=== PATIENT | female | born 1975 | race Caucasian/White ===

== ENCOUNTER 2020-04-01 09:38 | Outpatient (CLI) | payer OTHER, SELFPAY ==
--- NOTE | 2020-04-01 09:46 | MM_ITS ---
WS: [id number] SCREENING DIGITAL MAMMOGRAM WITH CAD HISTORY: SCREENING COMPARISON: 03/18/2018 and 08/21/2011 Bilateral CC and MLO views submitted. Computer aided detection analyzed. Breast composition: The breasts are extremely dense, which lowers the sensitivity of mammography. Shahzad cifications upper outer quadrant of the RIGHT breast are new since the prior study. These calcificati ons are difficult to visualize and obscured by the dense fibroglandular tissue. Some of these calcifi cations appear to be in a ductal distribution. MM/[place] [id number] IMPRESSION: BI-RADS: 0-Incomplete: Need additional imaging evaluation FOLLOW UP: Need Additional Imaging RIGHT BREAST: Magnification views of suspicious calcification CC and MLO. True ML. View
== END 2020-04-01 09:39 | disposition home or self-care (01) ==
LOC: RADSHAW 09:44
PROVIDERS: Family Provider Family Medicine; Visit Provider Family Medicine
DX: Z12.31 Encounter for screening mammogram for malignant neoplasm of breast (principal); R92.1 Mammographic calcification found on diagnostic imaging of breast
CPT/HCPCS: 77067

== ENCOUNTER 2020-04-11 10:19 | Outpatient (CLI) | payer OTHER, SELFPAY ==
--- NOTE | 2020-04-11 10:22 | MM_ITS ---
WS: [id number] ADDITIONAL VIEWS RIGHT BREAST HISTORY: RIGHT BREAST CALCIFICATION COMPARISON: 04/01/2020 and 03/18/2018 Magnification views right CC and MLO projection. True ML also submitted. There are numerous segmental calcifications in the upper outer quadrant of the RIGHT breast. Calcific ations are not clustered. Some of these calcifications are lucent centered which are benign. No ducta [place] distribution. MM/[place] [id number] IMPRESSION: BI-RADS: 3-Probably Benign FOLLOW-UP: 6 Month Follow-up Recommendation magnification views RIGHT breast calcifications in 6 months. Due to the diffuse nature of these calcifications at this time stereotactic biopsy would not be helpful. Reevaluated in 6 months to evaluate for developing focal clustered calcification group.
== END 2020-04-11 10:20 | disposition home or self-care (01) ==
LOC: RADSHAW 10:21
PROVIDERS: Family Provider Family Medicine; Visit Provider Family Medicine
DX: R92.1 Mammographic calcification found on diagnostic imaging of breast (principal)
CPT/HCPCS: 77065

== ENCOUNTER 2020-10-03 09:17 | Outpatient (CLI) | payer OTHER, SELFPAY ==
--- NOTE | 2020-10-03 09:27 | MM_ITS ---
WS: [id number] Right breast diagnostic digital mammogram, 10/03/2020 Clinical Data: RIGHT BREAST CALCIFICATION Comparison: 04/11/2020, 04/01/2020, 03/18/2018, 08/21/2011. Findings: The right breast shows extreme density. The calcifications in the upper outer quadrant of the right b reast remain diffuse. No clustered calcifications or spiculated masses are seen. MM/[place] [id number] Impression: 1. Diffuse calcifications in upper-outer quadrant right breast which are unchan ged. 2. Recommend return to annual screening mammograms. BIRADS: 2-Benign FOLLOW UP: 1 Year Follow-up The CAD finished cloth checker was used.
== END 2020-10-03 09:18 | disposition home or self-care (01) ==
LOC: RADSHAW 09:23
PROVIDERS: Family Provider Family Medicine; PCP Family Medicine; Visit Provider Family Medicine
DX: R92.1 Mammographic calcification found on diagnostic imaging of breast (principal)
CPT/HCPCS: 77065

== ENCOUNTER → 2021-11-27 14:29 | Outpatient (BNVA) | payer OTHER, SELFPAY | PROVIDERS: Family Provider Family Medicine; PCP Family Medicine; Visit Provider Podiatrist Foot & Ankle Surgery | DX: L60.3 Nail dystrophy (principal) | CPT/HCPCS: 73630 ==

== ENCOUNTER 2022-11-18 14:47 | Emergency (ER) | payer OTHER, SELFPAY ==
--- NOTE | 2022-11-18 14:49 | XRR_ITS ---
PROCEDURE INFORMATION: Exam: XR Left Ankle Exam date and time: 11/18/2022 3:34 PM Age: 47 years old Clinical indication: Injury or trauma; Fall; Blunt trauma; Ankle; Left TECHNIQUE: Imaging protocol: Radiologic exam of the left ankle. Views: 3 or more views. COMPARISON: No relevant prior studies available. FINDINGS: Bones/joints: Medial aspect of the talus demonstrates cortical irregularity, potentially reflecting an acute fracture, CT could further evaluate this. Soft tissues: Normal. XR/XR ankle LT min 3V* [id number] IMPRESSION: Medial aspect of the talus demonstrates cortical irregularity, potentially reflecting an acute fracture, CT could further evaluate this.
[2022-11-18 15:14] VITALS: BP 107/65; PULSE 78; RESP 16; TEMP 36.7; O2SAT 100; BMI 25.8
--- NOTE | 2022-11-18 16:45 | CTR_ITS ---
PROCEDURE INFORMATION: Exam: CT Left Lower Extremity Without Contrast, Ankle Exam date and time: 11/18/2022 5:01 PM Age: 47 years old Clinical indication: Injury or trauma; Other: Fall from horse; Blunt trauma; Ankle; Left; Additional info: Pain TECHNIQUE: Imaging protocol: CT of the left lower extremity without contrast was performed. Exam focused on the ankle. Radiation optimization: All CT scans at this facility use at least one of these dose optimization techniques: automated exposure control; mA and/or kV adjustment per patient size (includes targeted exams where dose is matched to clinical indication); or iterative reconstruction. REPORTING DATA: Count of CT and Cardiac NM exams in prior 12 months: This patient has received 0 known CTs and 0 known cardiac nuclear medicine studies in the 12 months prior to the current study. COMPARISON: CR (LOW EXM, ) 11/18/2022 3:34 PM RADIATION DOSE METRICS: Total DLP (mGy-cm): 164.88 FINDINGS: Bones/joints: Comminuted displaced fracture to the talar body with extension to the subtalar articular surface and involvement of the medial malleolus as well as the lateral aspect of the talus. Punctate calcification along the anterior aspect of the distal tibia suggestive of a small avulsion fracture. Soft tissues: Subcutaneous edema about the ankle. CT/CT ankle LT wo con* [id number] IMPRESSION: 1. Comminuted displaced fracture to the talar body with extension to the subtalar articular surface and involvement of the medial malleolus as well as the lateral aspect of the talus. 2. Punctate calcification along the anterior aspect of the distal tibia suggestive of a small avulsion fracture. 3. Subcutaneous edema about the ankle.
[2022-11-18 17:30] VITALS: RESP 20; O2SAT 99
[2022-11-18] MEDS: morphine 4 mg/mL SDV 1 mL IM (17:30)
--- NOTE | 2022-11-18 18:20 | ED_ITS ---
HPI - Extremity Problem General: Chief complaint: Extremity Injury, Lower Stated complaint: LT ankle inj Time Seen by Provider: 11/18/22 14:58 History of Present Illness: 47-year-old female presented emergency room with left ankle pain. Patient further reveals that she sustained an injury while trying to get off her horse. Patient describes the pain as sharp sensation with severity of 9 out of 10 mostly along the left ankle. Patient denies any numbness, no other injury no knee pain or hip pain. Head injury or loss of consciousness. Patient reveals increased pain with weightbearing and range of motion. Review of Systems General: Reports: 10 or more systems reviewed and unremarkable except in HPI and below Musc: Reports: joint pain, joint swelling and limited range of motion; Denies: neck pain, back pain, extremity pain, extremity swelling, joint redness, joint warmth or joint stiffness PFSH ED PFSH: Social History Smoking and tobacco status: never smoked Physical Exam Const: COMMON NORMALS: no acute distress, average body habitus, patient oriented x3, no limitations, healthy appearing, alert and well nourished Neck/C-Spine: COMMON NORMALS: no JVD Resp: COMMON NORMALS: normal respiratory effort, No retractions, No use of accessory muscles, clear to auscultation bilaterally and percussion normal AUSCULTATION: clear to auscultation bilaterally PERCUSSION: percussion normal Cardio: COMMON NORMALS: no JVD, regular rate, regular rhythm, S1 normal heart sound present, S2 normal heart sound present, No gallops present (Cardio), No clicks present (Cardio), No murmurs present (Cardio), No rub (Cardio) and Peripheral pulses 2+ throughout RATE: regular rate RHYTHM: regular rhythm HEART SOUNDS: S1 normal heart sound present and S2 normal heart sound present PERIPHERAL PULSES: Peripheral pulses 2+ throughout Extremity: OTHER: Left ankle with severe swelling on the lateral aspect and and tenderness with range of motion. No open wound or laceration. Patient with strong palpable pulse. Patient with intact sensation of the toes. Neuro: COMMON NORMALS: patient oriented x3 SENSORIUM/ORIENTATION: Yes alert Skin: COMMON NORMALS: no rashes or lesions noted, no wounds, turgor normal, no jaundice, no petechiae and no mottling GENERAL SKIN EXAM: no rashes or lesions noted and turgor normal Procedures Orthopedic Splinting/Casting Injury #1: Side: left Lower Extremity Injury Location: ankle Lower Extremity Immobilizer: posterior splint and stirrup splint Other Orthopedic Equipment: crutches Course Reevaluation(s): Reevaluation #1: Upon assessment after splint patient reveals improvement with the pain. Consultations: Consultation #1: Discussed patient with the orthopedics on-call. Recommends splint and close follow-up in clinic. Vital Signs: Vital signs: Vital Signs Temperature 98.0 F 11/18/22 15:14 Pulse Rate 71 11/18/22 18:36 Respiratory Rate 16 11/18/22 18:36 Blood Pressure 107/65 11/18/22 15:14 Pulse Oximetry 98 11/18/22 18:36 Oxygen Delivery Me thod Room Air 11/18/22 15:14 MDM - Extremity (Nontraumatic) Medical Decision Making Patient was made comfortable emergency room. Patient extensive work-up including CT and x-ray. I discussed the x-ray and the CT finding with patient and . I spoke with about the CT findings and recommended splinting and close follow-up with clinic in the morning. The discharge plan was discussed with patient at length. Differential Diagnosis Likely lower extremity edema (Sprain, strain, fracture, dislocation) Lab Data Radiology Impressions Ankle X-Ray 11/18/22 14:49 IMPRESSION: Medial aspect of the talus demonstrates cortical irregularity, potentially reflecting an acute fracture, CT could further evaluate this. Ankle CT 11/18/22 16:45 IMPRESSION: 1. Comminuted displaced fracture to the talar body with extension to the subtalar articular surface and involvement of the medial malleolus as well as the lateral aspect of the talus. 2. Punctate calcification along the anterior aspect of the distal tibia suggestive of a small avulsion fracture. 3. Subcutaneous edema about the ankle. XR interpretation done by ED provider, pending radiology final review Discharge Plan Discharge Patient Disposition: Home Clinical Impression: Ankle sprain and strain, Fracture of toe, Ankle fracture, Talar fracture Condition: Stable Prescriptions: New tramadol 50 mg tablet 50 mg PO Q12H PRN (Reason: pain) Qty: 20 0RF Discharge Orders: Discharge ED (Routine); Ordered 11/18/22 Ordered By: Cheyanne Chamberlain Referrals: Nadia Oden MD [Primary Care Provider] - Mike Parr DO [Physician] - 1-3 days Discharge Diet: Advance as tolerated Discharge Activity: Resume usual activity Patient Instructions: Opioid Safety, Pain Management Coding Level of Care Code ED Shirring Machine Operator for Joseph Bella
[2022-11-18] MEDS: TRAMadol 50 mg Tablet PO (18:35)
[2022-11-18 18:36] VITALS: PULSE 71; RESP 16; O2SAT 98
== END 2022-11-18 18:38 | disposition home or self-care (01) ==
PROVIDERS: Emergency Provider Family Medicine; PCP Family Medicine
DX: S93.402A Sprain of unspecified ligament of left ankle, initial encounter (principal); S96.912A Strain of unspecified muscle and tendon at ankle and foot level, left foot, initial encounter; S82.52XA Displaced fracture of medial malleolus of left tibia, initial encounter for closed fracture; S92.122A Displaced fracture of body of left talus, initial encounter for closed fracture; V80.010A Animal-rider injured by fall from or being thrown from horse in noncollision accident, initial encounter
CPT/HCPCS: 29515; 73610; 73700; 96372; 99284; J2270

== ENCOUNTER 2023-02-21 14:29 | Outpatient (RCR) | payer OTHER, SELFPAY | END 2023-03-03 23:59 | disposition home or self-care (01) | LOC: SPT 14:29 | PROVIDERS: PCP Physician Assistant; Visit Provider Physician Assistant | DX: Z98.890 Other specified postprocedural states (principal) | CPT/HCPCS: 97110; 97140; 97161 ==

== ENCOUNTER 2023-03-13 08:07 | Outpatient (RCR) | payer OTHER, SELFPAY | END 2023-04-03 23:59 | disposition home or self-care (01) | LOC: SPT 08:07 | PROVIDERS: PCP Physician Assistant; Visit Provider Physician Assistant | DX: Z98.890 Other specified postprocedural states (principal) | CPT/HCPCS: 97110; L1902 ==

== ENCOUNTER → 2023-04-01 15:12 | Outpatient (BNVA) | payer OTHER, SELFPAY | PROVIDERS: PCP Physician Assistant; Visit Provider Nurse Practitioner Women's Health | DX: Z01.419 Encounter for gynecological examination (general) (routine) without abnormal findings (principal); N76.0 Acute vaginitis; B96.89 Other specified bacterial agents as the cause of diseases classified elsewhere; Z12.39 Encounter for other screening for malignant neoplasm of breast | CPT/HCPCS: 87624 ==

== ENCOUNTER 2023-04-04 06:00 | Outpatient (RCR) | payer OTHER, SELFPAY | END 2023-05-02 23:59 | disposition home or self-care (01) | LOC: SPT 06:00 | PROVIDERS: PCP Physician Assistant; Visit Provider Physician Assistant | DX: Z98.890 Other specified postprocedural states (principal) | CPT/HCPCS: 97110 ==

== ENCOUNTER 2023-04-09 08:14 | Outpatient (CLI) | payer OTHER, SELFPAY ==
--- NOTE | 2023-04-09 08:19 | MM_ITS ---
WS: [id number] BILATERAL SCREENING DIGITAL TOMOSYNTHESIS MAMMOGRAM WITH CAD HISTORY: Z12.39 - Encounter for other screening for malignant neop... COMPARISON: 10/03/2020, 04/01/2020, 03/18/2018 Bilateral CC and MLO views with tomosynthesis and synthetic mammography submitted. Computer aided det ection analyzed. Breast composition: The breasts are extremely dense, which lowers the sensitivity of mammography. No suspicious masses, microcalcifications or architectural distortion. Very dense asymmetric fibroglandu lar breast tissue. There are numerous bilateral scattered calcifications. There is no cluster or grou ping of calcifications. IMPRESSION: MM/[place] [id number] BI-RADS: 2-Benign FOLLOW UP: 1 Year Follow-up
== END 2023-04-09 08:15 | disposition home or self-care (01) ==
LOC: RAD 08:14
PROVIDERS: PCP Physician Assistant; Visit Provider Nurse Practitioner Women's Health
DX: Z12.31 Encounter for screening mammogram for malignant neoplasm of breast (principal); R92.323 Mammographic fibroglandular density, bilateral breasts; R92.1 Mammographic calcification found on diagnostic imaging of breast
CPT/HCPCS: 77063; 77067

== ENCOUNTER 2024-06-12 13:16 | Outpatient (CLI) | payer OTHER, SELFPAY ==
--- NOTE | 2024-06-12 08:20 | MM_ITS ---
WS: [id number] BILATERAL 3D TOMOSYNTHESIS DIGITAL SCREENING MAMMOGRAM WITH CAD CLINICAL INFORMATION: Z12.39 - Encounter for other screening for malignant neop... HISTORY: Screening mammogram. No current complaints. COMPARISON: 2023 TECHNIQUE: Bilateral CC and MLO. FINDINGS: The breast are composed of extremely dense nodular tissue, which can limit the detection of small underlying mass lesions. No suspicious focal mass, asymmetry, calcifications, or architectural distortion. No evidence of malignancy. A few tiny incidental punctate calcifications. Skin calcifications. MM/MM [facility] tomosynthesis [id number] IMPRESSION: DENSITY: The breasts are extremely dense, which lowers the sensitivity of mammo graphy. BI-RADS: 2 - Benign FOLLOW UP: 1 Year Follow-up Recommend return to annual screening mammography.
== END 2024-06-12 13:17 | disposition home or self-care (01) ==
PROVIDERS: PCP Electrodiagnostic Medicine; Visit Provider Nurse Practitioner Women's Health
DX: Z12.31 Encounter for screening mammogram for malignant neoplasm of breast (principal); R92.343 Mammographic extreme density, bilateral breasts; R92.1 Mammographic calcification found on diagnostic imaging of breast
CPT/HCPCS: 77063; 77067

== ENCOUNTER 2024-09-29 09:11 | Emergency (ER) | payer OTHER, SELFPAY ==
--- OUTSIDE RECORDS SUMMARY | 2024-09-29 09:19 | XMS_ITS | Continuity of Care Document ---
Author Organization [facility] Beni Michel, [facility] ([facility]) Address [address] [place] [address] Care Team Providers Care Agronomy Manager Name Role Phone VANITA TOSCANO Primary Care Provider Unavailabl e Assessment No assessment recorded. Plan of Treatment Reminders Order Date Submit Date Provider Last Modified By Organization Details Last Modified Time Details Appointments None recorded. Lab None recorded. Referral None recorded. Procedures None recorded. Surgeries None recorded. Imaging None recorded. Medication Orders prednisone 20 mg tablet 2024 025 [facility]/Pharmacy #[id number], [address], [address], 5 09:20:57 Patient TargetsNo targets recorded. Patient InstructionsNo instructions recorded. Reason for Referral None Reported. 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 Procedures Surgical History Date Name Laterality Status Provider Name and Address Organization Details Recorded Time 11/28/19 procedure on ankle completed [facility], Beni 12/11/2023 16:42:38 [facility] 16:43:[facility] 16:43:53 Imaging Results None recorded. Procedure Notes None recorded. Medical Equipment None Reported. Allergies Allergen ID Allergen Name Allergen Category Reaction Reaction Severity Criticality Documentation Date Start Date Code Code System Note Provider Name and Address Organization Details Recorded Time 12683 codeine sulfate medicatio n vomiting Not available Not available 09/29/2022 95821 RxNorm React ion: Vomit ing; Comme nt: Recor ded 06/14 11:18 AM by Leia Garcia r, Offic e Visit ; Promo karine; Signi fican ce: *; ; Not Available [facility] 3 02:28:38 84265 penicilli n V potassium medicatio n hives Not available Not available 09/29/2022 [id number] 5 RxNorm React ion: Hives ;all cilli n's; Comme nt: Recor ded 06/14 11:18 AM by Leia Garcia r, Offic e Visit ; Promo karine; Signi fican ce: *; ; Not Available [facility] 3 02:28:38 78748 codeine medicatio n hives Not available Not available 09/29/2022 2670 RxNorm React ion: Hives ; Comme nt: Recor ded 06/14 11:18 AM by Leia Garcia r, Offic e Visit ; Promo karine; Signi fican ce: *; ; Not Available [facility] 3 02:28:39 Medications Name Sig Start Date Stop Date Status Note LastModified by Organization Details LastModified Time cetirizin e 10 mg tablet 10 mg every day by oral route. 2015 active Not Available Not Available Not Avai lable azithromy ciarra 250 mg tablet TAKE 2 TABLETS BY MOUTH TODAY, THEN TAKE 1 TABLET DAILY FOR 4 DAYS DIRECTED 09/19 completed Not Available Not Available Not Available prednison e 20 mg tablet 2 po every AM for 4 days, then 1 po every AM for 4 more days. 2024 active Not Available Not Available Not Avai lable metronida zole 500 mg tablet TAKE 1 TABLET BY MOUTH TWICE A DAY FOR 7 DAYS 12/10 completed Not Available Not Available Not Available aspirin 81 mg chewable tablet TAKE 1 TABLET BY MOUTH 2 TIMES DAILY. 12/10 completed Not Available Not Available Not Available cephalexi n 500 mg tablet Take 1 tablet 3 times a day by oral route for 10 days. 2024 active Not Available Not Available Not Avai lable estradiol 0.01% (0.1 mg/gram) vaginal cream 1 APPLICAT ION VAGINALL Y TWICE DAILY FOR TWO WEEKS, AND THEN TWICE WEEKLY. 12/10 completed Not Available Not Available Not Available Daily Multi-Vit styles tablet 1 tablet every day by oral route. 2022 active Not Available Not Available Not Avai lable vitamin A daily 12/08 completed 0; Recorded 06/15/19 11:19AM by Elma Mayorga, Office Visit; Not Available Not Available Not Available Vitamin D3 daily active 0; Recorded 06/15/19 11:19AM by Elma Mayorga, Office Visit; Not Available Not Available Not Available Vitamin B12 daily active 0; Recorded 06/15/19 11:19AM by Elma Mayorga, Office Visit; Not Available Not Available Not Available Probiotic Acidophil us daily active 0; Recorded 06/15/19 11:19AM by Elma Mayorga, Office Visit; Not Available Not Available Not Available diindolyl methane 75 mg-turmer ic 125 mg-black pepper 1.25 mg capsule 1 capsule every day by oral route. 2018 active Not Available Not Available Not Avai lable Vitals Date Recorded Body height Body mass index (BMI) Body weight Oxygen saturation Oxygen saturation in Arterial blood by Pulse oximetry Heart rate Respiratory rate Body temperature Systolic And Diastolic Provider Name and Address Organization Details Last Updated DateTime 5 167.64 cm 27.2 kg/m2 38117.9 2 g 97 % 97 % 96 /min 18 /min 97.4 [degF] 110/70 mm[Hg] Vianey dEmondson [facility] 08:57:07 Social History Question Answer Notes LastModified by Organizat ion Details LastModified Time Tobacco Smoking Status Never Smoker Katelynn Urisa kiara [facility] 09/19/2024 11:36:01 What Was The Date Of Your Most Recent Tobacco Screening? 09/19/2024 [id number] Information not available 09/19/2024 Sex: Unknown Functional Status None recorded. Mental Status None recorded. Family History Relationship Description Onset Age of this Age Resolved Age Notes LastModified by Organization Details LastModified Time Father Essential hypertension [email or web address] Not available 11/2023 16:50:40 Paternal Grandfather Heart disease Not available 2023 16:51:02 Paternal Grandmother Heart disease [id number] Not available 2023 16:51:02 Mother Disorder of thyroid gland Not available 2023 09:33:09 Maternal Grandmother Goiter Not available 12/02 09:33:21 Medical History No medical history recorded. Gynecological HistoryNo gynecological history recorded. Obstetrics History GPAL:G 0 P 0 0 0 0 Immunizations Vaccine Type Date Status Note Provider Nam e and Address Organization Details Recorded Time Influenza, split virus, trivalent, preservative 0 completed Not Available [facility] 09/29/2022 02:50:16 Influenza, split virus, trivalent, preservative 1 completed Not Available [facility] 09/29/2022 02:50:16 Past Encounters Encounter ID Performer Location Encounter Start Date Encounter Closed Date Diagnosis/Indication Diagnosis SNOMED-CT Code Diagnosis ICD10 Code Diagnosis Note [id number] GER WHYTE [facility] ([facility]) [address] [place] [phone] 09/19/2024 11:30:16 09/19/2024 18:38:21 Eruption 432168694 R21 May use otc meds like zyrtec daily for symptoms. Return to clinic with any new or worsening symptoms. [id number] Vanita Toscano DO [facility] ([facility]) [address] [place] [address] 09/22/2024 08:46:40 09/23/2024 13:33:46 Muscle pain 95854716 M79.18 Eruption 660528019 R21 with myalgias and arthralgia s. not resolving with conservati ve treatment. will start prednisone . continue zyrtec.Ret urn to office with no improvemen t or any problems. Go to ER with severe worsening or severe problems. Health Concerns Section Related Observation LastModified by Organization Detai ls LastModified Time None Recorded Concern Status LastModified by Organization Details LastModified Time None Recorded Payers Encounter Date Sequence Insurance Name Policy Number Policy Kerns Covered Member ID Kerns Member ID Guarantor Name 09/22/2024 1 [employer] - [employer] ([employer]) [id number] Richardson Scott [id number] Richardson Scott OBGyn Episode No OBEpisode recorded.
--- OUTSIDE RECORDS SUMMARY | 2024-09-29 09:20 | XMS_ITS | Clinical Summary ---
Author Organization [facility] Address [address] [place] [address] Phone Care Team Providers Care Secretary Name Role Phone Karan Mckinney MD Primary Care Provider [phone] Allergies Active Allergy Reactions Criticality Noted Date Comments Alpha-Gal (Yfwsosckc-Usjbq-3,3-Galacto se) Shortness of Breath/Wheezing,Rash,Naus ea and Vomiting High 11/22/2022 Codeine Nausea and Vomiting Low 11/21/2022 Hydrocodone Hives High 11/21/2022 Oxycodone Hives High 11/21/2022 Penicillins Hives High 11/18/2022 Medications cyclobenzaprine (FLEXERIL) 10 mg tablet 11/19/2022 Active traMADoL (ULTRAM) 50 mg tablet 11/19/2022 Active ibuprofen (MOTRIN) 200 mg tablet Take 200 mg by mouth every 6 hours as needed for Pain, Mild. Active acetaminophen (TYLENOL) 500 mg tablet Take 500 mg by mouth every 6 hours as needed. Active CHOLECALCIFEROL , VITAMIN D3, ORAL Take by mouth. Active cetirizine (ZyrTEC) 10 mg tablet Take 10 mg by mouth daily. Active ondansetron (ZOFRAN ODT) 4 mg Tablet, Rapid Dissolve Take 1 Tablet (4 mg) by mouth every 4 hours as needed for Nausea/Emesis . Dissolve tablet on top of tongue, then swallow with saliva. 30 Tablet 1 11/27/2022 1:35 PM CDT 11/27/2022 Active HYDROmorphone (DILAUDID) 2 mg tabletIndicatio ns:Closed displaced fracture of body of left talus with routine healing, subsequent encounter Take 1 Tablet (2 mg) by mouth every 3 hours as needed for Pain. Max Daily Amount: 16 mg 20 Tablet 11/29/2022 Active aspirin (JACKSON CHEWABLE) 81 mg Tablet, Chewable Take 1 Tablet (81 mg) by mouth 2 times daily. 60 Tablet 1 12/26/2022 Active Miscellaneous Medical SupplyIndicatio ns:Status post open reduction and internal fixation (ORIF) of fracture L ASO Brace 1 Each 03/13/2023 Active Active Problems Problem Noted Date Diagnosed Date Closed displaced fracture of left talus 11/27/19 23 Social History Tobacco Use Types Packs/Day Years Used Date Smoking Tobacco: Former Cigarettes 0.1 10 1 997 - 2006 Smokeless Tobacco: Never Tobacco Cessation:Counseling Given: Not Answered Alcohol Use Standard Drinks/Week Comments Not Currently 0 (1 standard drink = 0.6 oz pur e alcohol) rarely Comments No Sex and Gender Information Value Date Recorded Sex Assigned at Not on file Legal Sex Female 3:47 PM CDT Gender Identity Not on file Sexual Orientation Not on file Last Filed Vital Signs Vital Sign Reading Time Taken Comments Blood Pressure 112/68 03/27/2023 10:25 AM SPECIMEN PREPARATION ASSISTANT Pulse 78 01/09/2023 10:21 AM SPECIMEN PREPARATION ASSISTANT Temperature 36.7 C (98.1 F) 11/27/2022 4:15 PM CDT Respiratory Rate 17 11/27/2022 3:03 PM CDT Oxygen Saturation 94% 11/27/2022 4:30 PM CDT Inhaled Oxygen Concentration - - Weight 70.3 kg (155 lb) 03/27/2023 10:25 AM SPECIMEN PREPARATION ASSISTANT Height 167.6 cm (5' 6 ) 03/27/2023 10:25 AM SPECIMEN PREPARATION ASSISTANT Body Mass Index 25.02 03/27/2023 10:25 AM SPECIMEN PREPARATION ASSISTANT Plan of Treatment Health Maintenance Due Date Last Done Comments DTAP/TDAP/TD VACCINES (1 - Tdap) 1996 HEPATITIS B VACCINES (1 of 3 - 19+ 3-dose series) 1996 HPV/Cotest (21-29) 1998 CERVICAL CANCER SCREENING 09/27/2007 HPV/Cotest (30-65) 09/27/2007 PAP SMEAR 09/27/2007 BREAST CANCER SCREENING 2017 COLORECTAL SCREENING 2022 Colorectal Cancer Screening 2022 FIT-DNA Q 3 years 2022 FIT/FOBT Q 1 year 2022 Flex Sig/CT Colonography Q 5 years 2022 INFLUENZA VACCINE (#1) 2024 HPV VACCINES Aged Out No longer eligi ble based on patient's age to complete this topic Medical Devices Implanted Type Area Watchguard Device Identifier Shelf Expiration Date Model / Serial / Lot Screw Cmprsn Ft Ti 4.0x44mm [id number]-[id number] - [id number] Implanted:Qty: 1 on 11/27/2022 by Vitaliy Blanchard MD at [facility] Screw N/A: Foot [employer] 01/01/2023 AR-[id number] / / LOAD #[id number] Screw Quickfix Pt 4.0x34mm [id number] - [id number] Implanted:Qty: 1 on 11/27/2022 by Vitaliy Blanchard MD at [facility] Screw N/A: Foot [employer] 01/01/2023 AR-8740-34P TS / / LOAD #[id number] Screw Quickfix Pt 4.0x30mm [id number] - [id number] Implanted:Qty: 1 on 11/27/2022 by Vitaliy Blanchard MD at [facility] Screw N/A: Foot [employer] 01/01/2023 AR-8740-30P TS / / LOAD #[id number] Explanted Type Area Watchguard Device Identifier Shelf Expiration Date Model / Serial / Lot Wire K Trocar Dbl .[id number] - [id number] Explanted:Qty: 1 on 11/27/2022 by Vitaliy Blanchard MD at [facility] Wire N/A: Foot [facility] [facility] 01/01/2023 [id number] / / LOAD #[id number] Insurance [employer] BALANCE [employer] EXCH[employer] [id number] [id number] RX EXPRESS SCRIPTS Express RX [employer] PLANS (INTERNAL) [facility] Internal Plans Advance Directives For more information, please contact: [phone] * Full Code (Latest Code Status on File) Date Activated Date Inactivated Comments 11/27/2022 9:31 AM 11/27/2022 7:11 PM * Full Code Date Activated Date Inactivated Comments 11/27/2022 9:12 AM 11/27/2022 9:30 AM Care Teams Secretary Relationship Specialty Start Date End Date Karan Mckinney MD [address] [facility] [address] [place] [id number] PCP - General Family Practice 11/27/22
--- OUTSIDE RECORDS SUMMARY | 2024-09-29 09:20 | XMS_ITS | Data Portability ---
Author Organization [facility] Octaviano [facility], [facility] Address [address] [address] [place] [address] Care Team Providers Care Business Analyst Consultant Name Role Phone VANITA TOSCANO Primary Care Provider Unavailabl e Assessment Encounter Date Assessment Date Assessment LastModified by Organization Details LastModified Time 12/11/2023 12/11/2023 jaw pain is resolved. likely a resolved TMJ. counseled. Return to office with no improvement or any problems. Go to ER with severe worsening or severe problems. [email or web address] Not available 12/11/2023 17:30:24 Plan of Treatment Reminders Order Date Submit Date Provider Last Modified By Organization Details Last Modified Time Details Appointments None recorded. Lab rapid flu (A+B), PCR [email or web address] [facility] ([facility]), [address] [place], [address], 5 09:37:12 TSH, serum or plasma 2023 [facility] ([facility]), [address] [place], [address], 18:03:41 T4, free, serum [facility], [address] [place] [address], [address] [place], [address], 4 19:16:58 alpha-gal ige, serum - whole panel with individual beef, pork, sterling 2023 024 [place] [facility], [address], [address] [place], [address], 19:16:56 Referral None recorded. Procedures None recorded. Surgeries None recorded. Imaging None recorded. Medication Orders prednisone 20 mg tablet 2024 025 [facility]acy #[id number], [address], [address], 09:20:57 azithromyci n 250 mg tablet 2024 025 [facility]acy #[id number], [address] [facility], [facility], [place], [address], 11:35:41 Patient TargetsNo targets recorded. Patient InstructionsNo instructions recorded. Reason for Referral None Reported. Results Created Date Observation Date Name Description Value Unit Range Abnormal Flag Note LastModifiedBy Organization Detail LastModifiedTime 12/11/1912/15/2023 ALPHA GAL PANEL beef (F27) IgE 4.85 kU/L high Not Available [facility] [place] [address] [place], [address], 12/15/2023 19:16:56 12/11/1912/15/2023 ALPHA GAL PANEL class 3 Not Available [facility] [place] [address] [place], [address], 12/15/2023 19:16:56 12/11/1912/15/2023 ALPHA GAL PANEL sterling (F88) IgE 1.21 kU/L high Not Available [facility] [place] [address] [place], [address], 12/15/2023 19:16:56 12/11/1912/15/2023 ALPHA GAL PANEL class 2 Not Available [facility] [address] [place], [address], 12/15/2023 19:16:56 12/11/1912/15/2023 ALPHA GAL PANEL pork (F26) IgE 1.96 kU/L high Not Available [facility] [address] [place], [address], 12/15/2023 19:16:56 12/11/1912/15/2023 ALPHA GAL PANEL class 2 Not Available [facility] [address] [place], [address], 12/15/2023 19:16:56 12/11/1912/15/2023 ALPHA GAL PANEL galactose alpha 1,3 galactose IgE 5.77 kU/L <0.10 high Resul ts above 0.1 kU/L indic ate an aller gen-s pecif ic IgE sensi tizat ion to galac tose- a-1,3 -gala ctose , and such patie nts are at risk for delay ed aller gic react ions follo wing beef, pork, or sterling consu mptio n. Circu latin g IgE antib odies may remai n undet ectab le despi te a convi ncing clini poonam histo ry becau se these antib odies may be direc karine towar ds aller gens revea led or alter ed durin g indus trial proce ssing , cooki ng, or diges tion and there fore do not exist in the origi nal food for which the patie nt is teste d. Somet imes indiv idual s diagn osed with chron ic urtic aria may devel op IgE antib odies direc karine again st human thyro globu cameron. Such antib odies may cross -reac t with the bovin e thyro globu cameron used in Immun oCAP( R) Aller gen o215, alpha -Gal, leadi ng to a false -posi tive test resul t. A defin itive diagn osis shoul d be based on the evalu ation of both clini poonam and labor atory findi ngs and not on any singl e diagn ostic metho d. Addit ional infor matio n can be found at http: //www .phad ia.co m Not Available [facility] [address] [place], [address], 12/15/2023 19:16:56 12/11/1912/15/2023 INTER PRETA TION interpretati on Speci fic Level of Aller gen IGE Class kU/L Speci fic IGE Antib lisa ----- ----- ---- ----- ----- ----- ---- 0 <0.10 Absen t/Und etect able 0/1 0.10- 0.34 Very Low Level 1 0.35- 0.69 Low Level 2 0.70- 3.49 Moder ate Level 3 3.50- 17.4 High Level 4 17.5- 49.9 Very High Level 5 50-10 0 Very High Level 6 >100 Very High Level The clini poonam relev ance of aller gen resul ts of 0.10- 0.34 kU/L are undet ermin ed and inten ded for speci alist use. Aller gens denot ed with a inclu de resul ts using one or more medhat te speci fic reage nts. In those cases , the test was devel oped and its medhat tical perfo rmanc e dao cteri stics have been deter mined by [facility]. It has not been clear ed or appro bridger by the U.S. Food and Drug Admin istra tion. This assay has been valid ated pursu ant to the CLIA regul ation s and is used for clini poonam purpo ses. Not Available [facility] [address] [place], [address], 12/15/2023 19:16:58 12/11/1912/15/2023 T4, FREE T4, free 1.2 NG/dL 0.8-1. 8 normal Not Available [facility] [address] [place], [address], 12/15/2023 19:16:58 12/11/1912/11/2023 TSH, serum or plasm a TSH 0.79 uIU/m L 0.49-[address] [facility] ([facility]) [address] [place] [address], [address], 12/11/2023 17:24:28 03/26/19 25 03/26/2024 rapid flu (A+B) , PCR Influenza A negati ve Not Available [facility] ([facility]) [address] [place] [address], [address], 03/26/2024 09:08:53 03/26/1903/26/2024 rapid flu (A+B) , PCR Influenza B negati ve Not Available [facility] ([facility]) [address] [place] [address], [address], 03/26/2024 09:08:53 Result Notes None recorded. 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, [facility]lga[facility] 5 08:55:07 Eruption 407033004 Active 2024 Vanita Toscano DO [address] [place] [address], [address] , [facility], L.[facility] 5 09:16:53 Problem Notes None recorded. Procedures Surgical History Date Name Laterality Status Provider Name and Address Organization Details Recorded Time 11/28/19 procedure on ankle [facility] 12/11/2023 16:42:38 excision of ganglion cyst [facility]/11/2023 16:43:36 tonsillectomy completed Vianey Edmondson [facility], [place] 12/11/2023 16:43:53 Imaging Results None recorded. Procedure Notes None recorded. Medical Equipment None Reported. Allergies Allergen ID Allergen Name Allergen Category Reaction Reaction Severity Criticality Documentation Date Start Date Code Code System Note Provider Name and Address Organization Details Recorded Time 38588 codeine sulfate medicatio n vomiting Not available Not available 09/29/2022 68424 RxNorm React ion: Vomit ing; Comme nt: Recor ded 06/14 11:18 AM by Leia Garcia r, Offic e Visit ; Promo karine; Signi fican ce: *; ; Not Available [facility] 3 02:28:38 21891 penicilli n V potassium medicatio n hives Not available Not available 09/29/2022 64287 5 RxNorm React ion: Hives ;all cilli n's; Comme nt: Recor ded 06/14 11:18 AM by Kelse martínez Yeage r, Offic e Visit ; Promo karine; Signi fican ce: *; ; Not Available [facility] 3 02:28:38 49143 codeine medicatio n hives Not available Not available 09/29/2022 2670 RxNorm React ion: Hives ; Comme nt: Recor ded 06/14 11:18 AM by Kelse tanya Hilarioage r, Offic e Visit ; Promo karine; Signi fican ce: *; ; Not Available [facility] 3 02:28:39 Medications Name Sig Start Date [...] completed 0; Recorded 06/15/19 11:19AM by Elma Mares, Office Visit; Not Available Not Available Not Available Vitamin D3 daily active 0; Recorded 06/15/19 11:19AM by Elma Mares, Office Visit; Not Available Not Available Not Available Vitamin B12 daily active 0; Recorded 06/15/19 11:19AM by Elma Mares, Office Visit; Not Available Not Available Not Available Probiotic Acidophil us daily active 0; Recorded 06/15/19 11:19AM by Elma Mares, Office Visit; Not Available Not Available Not Available diindolyl methane 75 mg-turmer ic 125 mg-black pepper 1.25 mg capsule 1 capsule every day by oral route. 2018 active Not Available Not Available Not Avai lable Vitals Date Recorded Body height Body mass index (BMI) Body weight Oxygen saturation Oxygen saturation in Arterial blood by Pulse oximetry Heart rate Respiratory rate Systolic And Diastolic Provider Name and Address Organization Details Last Updated DateTime 5 167.64 cm 27.8 kg/m2 96438.8 9 g 99 % 99 % 86 /min 18 /min 128/76 mm[Hg] ELMA MARES [facility] 5 09:06:59 Date Recorded Body height Body mass index (BMI) Body weight Body temperature Heart rate Oxygen saturation Oxygen saturation in Arterial blood by Pulse oximetry Systolic And Diastolic Provider Name and Address Organization Details Last Updated DateTime 5 167.64 cm 27.2 kg/m2 92320.3 2 g 98.5 [degF] 92 /min 99 % 99 % 122/68 mm[Hg] Katelynn Adonay [facility], L.L.COlga 5 11:39:58 Date Recorded Body height Body mass index (BMI) Body weight Oxygen saturation Oxygen saturation in Arterial blood by Pulse oximetry Heart rate Respiratory rate Body temperature Systolic And Diastolic Provider Name and Address Organization Details Last Updated DateTime 5 167.64 cm 27.2 kg/m2 76599.9 2 g 97 % 97 % 96 /min 18 /min 97.4 [degF] 110/70 mm[Hg] Vianey Edmondson [facility], L.L[facility]CO[facility] 5 08:57:07 Date Recorded Body height Body mass index (BMI) Body weight Oxygen saturation Oxygen saturation in Arterial blood by Pulse oximetry Heart rate Body temperature Respiratory rate Systolic And Diastolic Provider Name and Address Organization Details Last Updated DateTime 5 167.64 cm 27 kg/m2 60487.9 3 g 97 % 97 % 67 /min 98.5 [degF] 17 /min 110/70 mm[Hg] NAEL WHATLEY [facility], L.L.CO[facility]ga 5 13:17:05 Date Recorded Body weight Body mass index (BMI) Body height Oxygen saturation Oxygen saturation in Arterial blood by Pulse oximetry Heart rate Respiratory rate Systolic And Diastolic Provider Name and Address Organization Details Last Updated DateTime 4 29766.8 5 g 26.5 kg/m2 167.64 cm 99 % 99 % 81 /min 18 /min 120/68 mm[Hg] Vianey Edmondson [facility], L.L.CO[facility]ga 4 16:40:00 Social History Question Answer Notes LastModified by Organizat ion Details LastModified Time Tobacco Smoking Status Never Smoker Katelynn Adonay [facility], L.L.CO[facility] 09/19/2024 11:36:01 What Was The Date Of Your Most Recent Tobacco Screening? 09/19/2024 [email or web address] Information not available 09/19/2024 Sex: Unknown Functional Status None recorded. Mental Status None recorded. Family History Relationship Description Onset Age of this Age Resolved Age Notes LastModified by Organization Details LastModified Time Father Essential hypertension [email or web address] Not available 11/2023 16:50:40 Paternal Grandfather Heart disease Not available 2023 16:51:02 Paternal Grandmother Heart disease [email or web address] Not available 2023 16:51:02 Mother Disorder of thyroid gland [email or web address] Not available 2023 09:33:09 Maternal Grandmother Goiter Not available 12/02 09:33:21 Medical History No medical history recorded. Gynecological HistoryNo gynecological history recorded. Obstetrics History GPAL:G 0 P 0 0 0 0 Immunizations Vaccine Type Date Status Note Provider Nam e and Address Organization Details Recorded Time Influenza, split virus, trivalent, preservative 0 completed Not Available [facility] 09/29/2022 02:50:16 Influenza, split virus, trivalent, preservative 1 completed Not Available [facility] 09/29/2022 02:50:16 Past Encounters Encounter ID Performer Location Encounter Start Date Encounter Closed Date Diagnosis/Indication Diagnosis SNOMED-CT Code Diagnosis ICD10 Code Diagnosis Note [id number] Vanita Toscano DO [facility] ([facility]) [address] [place] [phone] 12/11/2023 16:22:04 12/12/2023 08:59:32 Exophthalmos 49029889 H05.20 concern for by optomatris t. I do not see this today on exam. no s/s of hyperthryo id, but we will get labs to r/o. Allergy to leszoguok-hophv-8,3 galactose 893614504 Z88.8 story: DX 2018. NO fu labs since. eating dairy, not beef or pork. will get labs. counseled [id number] Vanita Toscano DO [facility] ([facility]) [address] [place] [phone] 03/26/2024 08:45:12 03/27/2024 10:05:37 Sore throat 184560450 J02.9 Acute maxi llary sinusitis 61417382 J01.00 rapid flu negative. c/w bacterial infection, will start abx. rest, fluids. Return to office with no improvemen t or any problems. Go to ER with severe worsening or severe problems. [id number] GER WHYTE [facility] ([facility]) [address] [place], [place] [phone] 5 09/19/2024 11:30:16 09/19/2024 18:38:21 Eruption 482768098 R21 May use otc meds like zyrtec daily for symptoms. Return to clinic with any new or worsening symptoms. [id number] Vanita Toscano DO [facility] ([facility]) [address] [place] [address] 5 09/22/2024 08:46:40 09/23/2024 13:33:46 Muscle pain 33146819 M79.18 Eruption [id number] R21 with myalgias and arthralgia s. not resolving with conservati ve treatment. will start prednisone . continue zyrtec.Ret urn to office with no improvemen t or any problems. Go to ER with severe worsening or severe problems. [id number] Vanita Toscano DO [facility] ([facility]) [address] [place], [place] [phone] 09/28/2024 13:00:09 09/28/2024 14:48:26 Acute cellulitis 5247925338 L03.90 Right index finger, s/p cat bite, counseled will tx with abx. Confirmed allergies, PCN rash years ago, will tx with Cephalexin 500mg TID for 10 days. Counseled on diagnosis, treatment options including medication s and possible side effects.Co unseled cats less likely with Rabies, however if she is concerned we can order vaccines, pt declines. Health Concerns Section Related Observation LastModified by Organization Detai ls LastModified Time None Recorded Concern Status LastModified by Organization Details LastModified Time None Recorded Advance Directives Directive None Recorded Payers Insurance Date Sequence Insurance Name Policy Number Policy Kerns Covered Member ID Kerns Member ID Guarantor Name 09/28/2024 1 MEDICA - [employer] (PPO) [id number] Richardson Scott [id number] Richardson Scott OBGymanolo Episode No OBEpisode recorded.
[2024-09-29 09:33] VITALS: BP 99/59; PULSE 93; RESP 16; TEMP 36.6; O2SAT 98; BMI 26.8
--- NOTE | 2024-09-29 09:44 | ED_ITS ---
HPI - Animal Bite General: Chief Complaint: Animal Bite Stated Complaint: cat bite on R index finger Time Seen by Provider: 09/29/24 09:36 Source: patient Mode of arrival: ambulatory Limitations: no limitations History of Present Illness: Patient is a 49-year-old female presents to ED today for evaluation of possible rabies PEP regarding a cat bite that she sustained 2 days ago after she was trying to rescue a kitten that was caught in traffic. Patient was seen by her primary care provider Dr. Toscano and was placed on Keflex. She states they had a discussion regarding rabies PEP but felt that there was low risk thus declined. Patient states she has been thinking more about it and thinks maybe she should get these now. MD complaint: animal bite Onset (ago): day(s) Description of animal: wild animal and immunizations unknown Mechanism: bite Context: provoked Associated symptoms: Reports no associated symptoms; Deny chills or fever(s) Related Data Previous Rx's ?Medication ?Instructions ?Recorded lidocaine 4 %-phenylephrine 0.25 % 1 ea topical QID #2 8 grams 06/01/24 rectal cream with applicator cefuroxime axetil 500 mg tablet 500 mg PO BID 7 days # 14 tabs 09/29/24 metronidazole 500 mg tablet 500 mg PO BID 7 days #14 t abs 09/29/24 Allergies Allergy/AdvReac Type Severity Reaction Status Date / Time codeine Allergy Mild ALGY-Hives Verified 06/01/24 09:06 hydrocodone Allergy ALGY-Hives Verified 06/01/24 09:06 Penicillins Allergy ADR-Itching Verified 06/01/24 09:06 red meat Allergy Mild acheness Uncoded 06/01/24 09:06 and rash Review of Systems Const: Denies: fever(s), chills, body aches, fatigue or malaise Musc: Reports: extremity pain (R index finger); Denies: extremity swelling, joint pain or joint swelling Skin/Breast: Reports: other (cat bite R index finger) PFSH ED PFSH: Family History Father Heart disease Grandfather Heart disease Social History Smoking and tobacco/nicotine status: never used tobacco/nicotine Physical Exam Const: COMMON NORMALS: no acute distress, average body habitus, no limitations, healthy appearing, alert and well nourished GENERAL APPEARANCE: cooperative Extremity: COMMON NORMALS: full ROM and capillary refill normal GENERAL: Yes normal exam except as noted RIGHT UPPER EXTREMITY: Yes hand & digits OTHER: cat bite R index finger-no erythema or streaking, no discharge; maybe some mild edema but patient maintains full ROM Neuro: SENSORIUM/ORIENTATION: Yes alert Course Vital Signs: Vital signs: Vital Signs Temperature 97.8 F 09/29/24 09:33 Pulse Rate 93 09/29/24 09:33 Respiratory Rate 16 09/29/24 09:33 Blood Pressure 99/59 09/29/24 09:33 Pulse Oximetry 98 09/29/24 09:33 Oxygen Delivery Me thod Room Air 09/29/24 09:33 MDM - Animal Bite Medical Decision Making Did discuss that the CDC and WHO guidelines would recommend rabies PEP. Tetanus also needs updated so this was completed today. She had been placed on Keflex which provides poor activity for P. multocida thus I will have her discontinue this and will start her on Cefuroxime and Flagyl. Return precautions discussed. Differential Diagnosis Likely cat bite Medical Records I reviewed the patient's medical records. No radiology studies performed this visit Discharge Plan Discharge Patient Disposition: Home Clinical Impression: Cat bite of finger Qualifiers: Encounter type: initial encounter Qualified Code(s): S61.259A - Open bite of unspecified finger without damage to nail, initial encounter Condition: Stable Prescriptions: New cefuroxime axetil 500 mg tablet 500 mg PO BID 7 Days Qty: 14 0RF metronidazole 500 mg tablet 500 mg PO BID 7 Days Qty: 14 0RF No Action lidocaine-phenylephrine 4-0.25 % cream with applicator 1 ea topical QID Qty: 28 3RF Rx Instructions: use up to four times daily Discharge Orders: Discharge ED (Routine); Ordered 09/29/24 Ordered By: Lucina Stark Referrals: Dylan Toscano DO [Primary Care Provider, [facility]] Patient Instructions: Rabies Vaccine (By injection), Rabies Immune Globulin (By injection), Animal Bite (ED), Patient Portal & [facility] Instructions Activity Restrictions/Additional Instructions: I would like you to stop your Cephalexin. I am placing you on 2 different antibiotics for better coverage of cat bites. He has been started on the rabies postexposure prophylaxis series. You will be discharged home with a schedule for remainder of vaccinations. These are to be completed at our infusion center when feasible. Continue to monitor your bite for signs of infection including redness, swelling, streaking up your hand or arm, fevers, worsening pain, or any other concerns you may have. Print Language: Danish Coding Level of Care Code ED [employer]otive Operator for Joseph Bella
[2024-09-29] MEDS: rabies vaccine 2.5 unit SDV IM (10:40)
[2024-09-29] MEDS: tetanus-dipt-pertussis 0.5 mL SDV IM (10:40)
[2024-09-29] MEDS: rabies IG 300 unit/mL SDV 1 mL 1500 UNIT IM (10:41)
[2024-09-29 10:55] VITALS: BP 101/68; PULSE 84; O2SAT 99
== END 2024-09-29 10:56 | disposition home or self-care (01) ==
PROVIDERS: Emergency Provider Physician Assistant; PCP Electrodiagnostic Medicine
DX: S61.259A Open bite of unspecified finger without damage to nail, initial encounter (principal); W55.01XA Bitten by cat, initial encounter; Z20.3 Contact with and (suspected) exposure to rabies; Z29.14 Encounter for prophylactic rabies immune globulin
CPT/HCPCS: 90375; 90471; 90675; 90715; 96372; 99283

== ENCOUNTER 2024-10-13 08:01 | Oncology outpatient (recurring) (ONCR) | payer OTHER, SELFPAY ==
[2024-10-02] MEDS: rabies vaccine 2.5 unit SDV IM (09:13)
[2024-10-06] MEDS: rabies vaccine 2.5 unit SDV IM (08:37)
[2024-10-13] MEDS: rabies vaccine 2.5 unit SDV IM (08:25)
== END 2024-11-01 23:59 | disposition home or self-care (01) ==
PROVIDERS: PCP Electrodiagnostic Medicine; Visit Provider Physician Assistant
DX: Z53.9 Procedure and treatment not carried out, unspecified reason (principal); Z23 Encounter for immunization; Z20.3 Contact with and (suspected) exposure to rabies; S61.250A Open bite of right index finger without damage to nail, initial encounter; W55.01XA Bitten by cat, initial encounter
CPT/HCPCS: 90471; 90675